=== PATIENT | male | born 1975 | race Caucasian/White ===

== ENCOUNTER → 2021-11-21 13:27 | Outpatient (BNVA) | payer BC, SELFPAY | PROVIDERS: Family Provider Nurse Practitioner; PCP Nurse Practitioner; Visit Provider Emergency Medicine | DX: U07.1 COVID-19 (principal) | CPT/HCPCS: 87426 ==

== ENCOUNTER 2024-05-27 09:00 | Outpatient (CLI) | payer BC, SELFPAY ==
--- NOTE | 2024-05-27 09:14 | XR_ITS ---
WS: [id number] Exam: XR foot RT min 3V* [id number] Date/Time of Exam: 05/27/2024 9:15 AM Reason For Exam: PAIN IN RIGHT FOOT No fracture. 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 The remaining joints are preserved. No soft tissue f oreign bodies. XR/XR foot RT min 3V* [id number] IMPRESSION: 1. 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 No other significant finding.
== END 2024-05-27 09:01 | disposition home or self-care (01) ==
LOC: RAD 09:07
PROVIDERS: Visit Provider Nurse Practitioner Family
DX: M19.071 Primary osteoarthritis, right ankle and foot (principal)
CPT/HCPCS: 73630